=== PATIENT | male | born 1990 | race Caucasian/White ===

== ENCOUNTER 2017-10-11 16:56 | Emergency (ER) | payer BC, OTHER ==
[2017-10-11] MEDS ORDERED: XYLOCAINE 1% HCL 20 ML MDV IJ ONE (18:04)
[2017-10-11] MEDS ORDERED: BACIGUENT PACKET TP ONE (18:04)
--- NOTE | 2017-10-11 18:10 | ERPHSYRPT ---
- History of Present Illness Time Seen by Provider: 10/11/17 18:00 Source: patient Exam Limitations: no limitations Patient Subjective Stated Complaint: pt cut right hand on tin today and has laceration to right hand Triage Nursing Assessment: pt alert, walked in, resp easy, skin w/d/p. has lacerationto right 4th and 5th digit Physician History: This is a 26-year-old white male arrives with complaint of laceration to his right dorsal fourth and fifth fingers symptoms since proximally 2 hours he states he lacerated his fingers on sheet steel he denies any movement problems he states he has no sensory deficits. Past medical history is negative Past surgical history negative Occurred: hours ago (2 hours ago) Method of Injury: other (lacerated on sheet steel) Quality: constant Severity of Pain-Max: mild Severity of Pain-Current: mild Extremities Pain Location: 4th finger: right, 5th finger: right Modifying Factors: Improves With: nothing Associated Symptoms: none Allergies/Adverse Reactions: Penicillins Allergy (Mild, Verified 05/30/12 22:35) Home Medications: No Home Meds 05/30/12 [History] Hx Tetanus, Diphtheria Vaccination/Date Given: Yes Hx Influenza Vaccination/Date Given: No Hx Pneumococcal Vaccination/Date Given: No Immunizations Up to Date: Yes - Review of Systems Constitutional: No Fever, No Chills Eyes: No Symptoms Ears, Nose, & Throat: No Symptoms Respiratory: No Cough, No Dyspnea Cardiac: No Chest Pain, No Edema, No Syncope Abdominal/Gastrointestinal: No Abdominal Pain, No Nausea, No Vomiting, No Diarrhea Genitourinary Symptoms: No Dysuria Musculoskeletal: Other (laceration right fourth and fifth finger) Skin: Other (laceration right fourth and fifth fingers) Neurological: No Dizziness, No Focal Weakness, No Sensory Changes Psychological: No Symptoms Endocrine: No Symptoms All Other Systems: Reviewed and Negative - Past Medical History Pertinent Past Medical History: No Neurological History: No Pertinent History, Other Cardiac History: No Pertinent History, Myocardial Infarction ([place]) Endocrine Medical History: No Pertinent History Musculoskeletal History: No Pertinent History GI Medical History: No Pertinent History History: No Pertinent History Psycho-Social History: No Pertinent History Male Reproductive Disorders: No Pertinent History - Past Surgical History Past Surgical History: No - Social History Smoking Status: Never smoker Exposure to second hand smoke: No Drug Use: none Patient Lives Alone: No - Nursing Vital Signs Nursing Vital Signs: Initial Vital Signs Temperature 97.0 F 10/11/17 17:21 Pulse Rate 59 L 10/11/17 17:21 Respiratory Rate 16 10/11/17 17:21 Blood Pressure 132/65 10/11/17 17:21 O2 Sat by Pulse Oximetry 97 10/11/17 17:21 Pain Scale Pain Intensity 0 - Physical Exam General Appearance: alert Eyes, Ears, Nose, Throat Exam: moist mucous membranes Neck Exam: non-tender, supple Cardiovascular/Respiratory Exam: chest non-tender, normal breath sounds, regular rate/rhythm, no respiratory distress Abdominal Exam: non-tender, No guarding Back Exam: normal inspection, No vertebral tenderness Shoulder Exam: normal inspection, non-tender, no evidence of injury, normal ROM Elbow/Forearm Exam: normal inspection, non-tender, no evidence of injury, normal ROM Wrist Exam: normal inspection, non-tender, no evidence of injury, normal ROM Hand Exam: normal ROM, laceration (1 cm laceration right dorsal fourth finger. 2 cm laceration right fifth finger dorsally) Neuro/Tendon Exam: normal sensation, normal motor functions Mental Status Exam: alert, oriented x 3, cooperative Skin Exam: other (2 cm laceration right fourth dorsal finger. 1 cm laceration right fourth fifth dorsalfinger) SpO2 Interpretation: normal (97%), borderline oxygenation ( ) SpO2: 97 Oxygen Delivery: Room Air - Course Nursing assessment & vital signs reviewed: Yes Ordered Tests: Active Orders 24 hr Category Date Time Status Prepare for Sutures STAT Care 10/11/17 18:04 Active Sutures STAT Care 10/11/17 18:04 Active Wound Care STAT Care 10/11/17 18:04 Active Medication Summary Generic Name Dose Route Start Last Admin Trade Name Freq PRN Reason Stop Dose Admin Bacitracin Zinc 0.9 gm 10/11/17 18:04 Baciguent Packet TP 10/11/17 18:05 STAT ONE Lidocaine HCl 5 ml 10/11/17 18:04 Xylocaine 1% Hcl 20 Ml Mdv IJ 10/11/17 18:05 STAT ONE - Progress Progress: improved Progress Note: 10/11/17 18:29 Laceration repair right hand 2 cm laceration right dorsal fifth finger. One centimeter laceration right dorsal fourth finger. Laceration sterilely prepped and draped anesthetized with 1% lidocaine. Lacerations sutured with 6 5. 0 Prolene sutures (interrupted) 5 in the fifth finger 1 in the fourth finger. Bacitracin sterile dressing is applied. Patient states he is up-to-date on his tetanus. - Departure Time of Disposition: 18:31 Departure Disposition: Home Clinical Impression: Finger laceration Qualifiers: Encounter type: initial encounter Finger: unspecified finger Damage to nail status: without damage Foreign body presence: without foreign body Laterality: right Qualified Code(s): S61.219A - Laceration without foreign body of unspecified finger without damage to nail, initial encounter Condition: Fair Critical Care Time: No Referrals: TONI SCHNEIDER [Primary Care Provider] - Additional Instructions: Return home. Keep area clean and dry. Bacitracin to the area until healed. Follow-up with your family doctor or return if signs of infection or problems. Sutures out in 5-7 days. Return for acute distress or for severe symptoms.
[2017-10-11] MEDS ORDERED: XYLOCAINE 1% HCL 20 ML MDV ONE (18:11)
[2017-10-11] MEDS ORDERED: BACIGUENT PACKET ONE (18:34)
[2017-10-11 18:40] VITALS: BP 125/58; PULSE 56; O2SAT 99
== END 2017-10-11 18:45 | disposition home or self-care (01) ==
LOC: ED 16:56
DX: S61.216A Laceration without foreign body of right little finger without damage to nail, initial encounter (principal); S61.214A Laceration without foreign body of right ring finger without damage to nail, initial encounter; W26.8XXA Contact with other sharp object(s), not elsewhere classified, initial encounter
CPT/HCPCS: 12002; 96372; 99284; A9270-GY